=== PATIENT | male | born 1965 | race Native Hawaiian/Other Pacific Islander ===

== ENCOUNTER 2021-09-09 11:10 | Emergency (ER) | payer OTHER, BC ==
[~2021-09-09] VITALS: Ht 195.6 cm; Wt 120.2 kg
[2021-09-09 11:10] VITALS: TEMP 98
[2021-09-09 11:27] LABS: PLATELET COUNT 163 K/uL (142-355)
[2021-09-09 11:34] LABS: POTASSIUM 3.8 mmol/L (3.6-5.2)
[2021-09-09 15:00] VITALS: BP 141/72
== END 2021-09-09 15:15 | disposition short-term general hospital (02) ==
LOC: ED 11:10
PROVIDERS: Emergency Medicine
PROC: 0HQ0XZZ Repair Scalp Skin, External Approach (ICD-10-PCS; principal; 2021-09-09)
DX: S09.8XXA Other specified injuries of head, initial encounter (principal); S12.291A Other nondisplaced fracture of third cervical vertebra, initial encounter for closed fracture; S01.01XA Laceration without foreign body of scalp, initial encounter; W01.198A Fall on same level from slipping, tripping and stumbling with subsequent striking against other object, initial encounter; Y92.89 Other specified places as the place of occurrence of the external cause
CPT/HCPCS: 36415; 80053; 80307; 81002; 84484; 85027; 93005; 96360; 96365; 96375; 99284; J0690; J1885; J2060; J7040